=== PATIENT | male | born 1960 | race Hispanic/Latino ===

== ENCOUNTER 2018-04-09 14:35 | Observation (INO) | payer BC ==
[~2018-04-09] VITALS: Ht 175.3 cm; Wt 76.4 kg
[~2018-04-09 14:35] MED LIST: ADLT ASA LOW81 MG PO; CARDIZEM30 MG PO; DILTIAZEM30 MG PO; FERROUS SULF325 M1 PO
[2018-04-09 15:11] LABS: IMMATURE GRANULOCYTES 0.4 % (0.0-5.0); MEAN CORPUSCULAR HGB 26.8 pG CALC (26.0-32.0); MEAN CORPUSCULAR HGB CONC 32.8 g/L CALC (32.0-36.0); NEUT# 9.53 thou/uL (1.82-7.42); RED CELL DISTRI WIDTH 13.4 % (11.5-15.5)
[2018-04-09 15:13] LABS: HEMATOCRIT 40.9 % (39.0-50.0); HEMOGLOBIN 13.4 g/dl (14.0-18.0); MEAN CELL VOLUME 81.8 fL CALC (80.0-100.0)
[2018-04-09 15:25] LABS: ANION GAP 19 (6-22 (CALC)); BUN 10 mg/dL (9-20); BUN/CREATININE RATIO 15 (12-20 (CALC)); CARBON DIOXIDE 24 mmol/l (22-30); CHLORIDE 96 mmol/l (95-108); CREATININE 0.7 mg/dL (0.7-1.3); GFR > 60 ML/MIN (>=60 (CALC)); GFR FOR AFR.AMER. > 60 ML/MIN (>=60 (CALC)); POTASSIUM 3.8 mmol/l (3.5-5.1); SODIUM 135 mmol/l (137-146)
[2018-04-09 22:55] VITALS: BP 155/77
[2018-04-10 00:24] VITALS: BP 131/69
[2018-04-10 04:42] VITALS: BP 108/65
[2018-04-10 05:20] LABS: HEMATOCRIT 36.5 % (39.0-50.0); HEMOGLOBIN 11.9 g/dl (14.0-18.0); IMMATURE GRANULOCYTES 0.2 % (0.0-5.0); MEAN CELL VOLUME 82.4 fL CALC (80.0-100.0); MEAN CORPUSCULAR HGB 26.9 pG CALC (26.0-32.0); MEAN CORPUSCULAR HGB CONC 32.6 g/L CALC (32.0-36.0); NEUT# 5.79 thou/uL (1.82-7.42); RED BLOOD COUNT 4.43 mill/uL (4.70-6.10); RED CELL DISTRI WIDTH 13.5 % (11.5-15.5)
[2018-04-10 05:38] LABS: ALKALINE PHOSPHATASE 115 u/l (38-126); AMYLASE 113 u/l (30-110); ANION GAP 17 (6-22 (CALC)); BILIRUBIN, TOTAL 0.7 mg/dL (0.0-1.4); BUN 11 mg/dL (9-20); BUN/CREATININE RATIO 17 (12-20 (CALC)); CARBON DIOXIDE 29 mmol/l (22-30); CHLORIDE 98 mmol/l (95-108); CREATININE 0.7 mg/dL (0.7-1.3); GFR > 60 ML/MIN (>=60 (CALC)); GFR FOR AFR.AMER. > 60 ML/MIN (>=60 (CALC)); LIPASE 190 u/l (23-300); POTASSIUM 4.3 mmol/l (3.5-5.1); SGOT/AST 21 u/l (17-59); SODIUM 139 mmol/l (137-146); TOTAL PROTEIN 7.3 g/dL (6.3-8.2)
[2018-04-10 05:41] LABS: MAGNESIUM 2.2 mg/dL (1.6-2.3)
[2018-04-10 07:35] VITALS: BP 122/66
[2018-04-10 11:05] VITALS: BP 159/81
[2018-04-10] MEDS ORDERED: COREG12.5 MG PO (15:02)
[2018-04-10] MEDS ORDERED: LOSARTAN POT50 MG PO (15:02)
[2018-04-10 15:27] VITALS: BP 135/75
== END 2018-04-10 17:08 | disposition home or self-care (01) | DRG 305 ==
LOC: ED 14:35 → ED-I 16:24 → ED 16:47 → MS2 16:48 → ED-I 16:48 → MS2 19:34
PROVIDERS: Family Medicine; ADMIT Internal Medicine Nephrology; ATTEND Internal Medicine Nephrology
DX: I16.9 Hypertensive crisis, unspecified (principal); I10 Essential (primary) hypertension; R07.89 Other chest pain; E66.9 Obesity, unspecified; D64.9 Anemia, unspecified; T46.5X6A Underdosing of other antihypertensive drugs, initial encounter; Z91.128 Patient's intentional underdosing of medication regimen for other reason; Z68.24 Body mass index [BMI] 24.0-24.9, adult; Z87.891 Personal history of nicotine dependence
CPT/HCPCS: G0378; J1650